=== PATIENT | female | born 1980 | race Caucasian/White ===

== ENCOUNTER 2024-04-03 13:10 | Emergency (ER) | payer SELFPAY ==
[~2024-04-03] VITALS: Ht 165.1 cm; Wt 67.0 kg
[2024-04-03 13:20] VITALS: O2SAT 98
[2024-04-03 14:11] LABS: HEMATOCRIT. 45.7 % (36.0-48.0); HEMOGLOBIN. 15.4 g/dL (12.0-16.0); MEAN CORPUSCULAR HEMOGLOBIN 28.8 pg (28.0-32.0); MEAN CORPUSCULAR HGB CONC 33.6 g/dL (31.0-37.0); MEAN CORPUSCULAR VOLUME 85.8 fL (81.0-99.0); MEAN PLATELET VOLUME 7.8 fl (7.4-10.4); PLATELET 269 x1000/uL (130-400); RED BLOOD CELL COUNT 5.33 mill/uL (4.2-5.4); RED CELL DISTRIBUTION WIDTH 13.9 % (11.6-14.6); WHITE BLOOD COUNT 8.3 x1000/uL (4.5-11.0)
[2024-04-03 14:13] LABS: CHLORIDE 109 mEq/L (98-107); DIFFERENTIAL COMMENT 1; POTASSIUM 4.9 mEq/L (3.5-5.1); SODIUM 138 mEq/L (136-145)
[2024-04-03 14:14] LABS: CARBON DIOXIDE 20 mEq/L (21-32)
[2024-04-03 14:19] LABS: CREATININE 1.7 mg/dL (0.6-1.0); GLUCOSE 129 mg/dL (70-105); UREA NITROGEN BLOOD 20 mg/dL (9-23)
[2024-04-03 14:21] LABS: ALANINE AMINOTRANSFERASE 24 IU/L (10-49); ASPARTATE AMINOTRANSFERASE 41 IU/L (<34); BILIRUBIN DIRECT 0.3 mg/dL (<=3.0)
[2024-04-03 14:22] LABS: PROTEIN TOTAL 9.7 g/dL (6.0-8.3)
[2024-04-03 14:27] LABS: ALBUMIN > 6.0 g/dL (3.2-4.8)
[2024-04-03 14:47] LABS: PLATELET ESTIMATE NORMAL
[2024-04-03] MEDS: FAMOTIDINE 20MG TABLET PO ONE (14:49)
[2024-04-03] MEDS: SODIUM CHLORIDE 0.9% 1,000 ML IV ONE (14:49)
[2024-04-03] MEDS: MAGNESIUM/ALUMINUM HYDROXIDE/SIMETHICONE 30ML UDC PO STA (14:49)
[2024-04-03] MEDS: ONDANSETRON HCL 4MG/2ML INJ IV ONE (14:49)
[2024-04-03 15:59] LABS: HCG SCREEN NEGATIVE
[2024-04-03] MEDS ORDERED: FAMO-135 MT (16:50)
[2024-04-03] MEDS ORDERED: MAG-55 MT (16:50)
[2024-04-03 17:11] VITALS: BP 110/68; PULSE 76; RESP 15; TEMP 98.4
== END 2024-04-03 17:14 | disposition home or self-care (01) ==
LOC: ER 13:22
DX: R11.2 Nausea with vomiting, unspecified (principal); N83.299 Other ovarian cyst, unspecified side; Z98.890 Other specified postprocedural states
CPT/HCPCS: 80076; 80048; 84703; 83690; 85025; 36415; 93005; 96374; 99284; J2405; J7030; Z7610 ×3